=== PATIENT | male | born 1975 | race Caucasian/White ===

== ENCOUNTER → 2019-06-04 | Outpatient (CLI) | payer OTHER ==
[~2019-06-04] MED LIST: ACETAMINOPHEN-1 EAC1 PO; LOPERAMIDE 2 MG2 M1 PO; MULTIVITAMINS; ZOFRAN4 MG PO
== END ==
LOC: M.ULTRA 13:50
DX: N45.2 Orchitis (principal)

== ENCOUNTER 2020-04-09 19:10 | Emergency (ER) | payer OTHER ==
[~2020-04-09] VITALS: Ht 172.7 cm; Wt 90.7 kg
[2020-04-09 19:46] LABS: ABSOLUTE BASOPHILS 0.1 thou/uL (0.0-0.2); ABSOLUTE EOSINOPHILS 0.1 thou/uL (0.0-0.7); ABSOLUTE LYMPHOCYTES 1.5 thou/uL (0.8-5.3); ABSOLUTE MONOCYTES 0.7 thou/uL (0.0-1.2); ABSOLUTE NEUTROPHILS 6.8 thou/uL (1.6-8.1); EOSINOPHILS 0.6 %; HEMOGLOBIN 15.2 gm/dL (14.0-18.0); LYMPHOCYTES 16.1 %; MCH 29.8 pg (26.0-34.0); MCHC 33.8 g/dL (28.0-37.0); MCV 88.3 fL (80.0-100.0); MONOCYTES 7.6 %; MPV 7.9 fl. (7.2-11.1); NUCLEATED RBCS 0 /100WBC; PLATELET COUNT* 293 thou/uL (150-400); POLYS 74.7 %; RDW-CV 14.6 % (10.5-14.5); WBC 9.1 thou/uL (4.0-11.0)
[2020-04-09 19:46] LABS: URINE BILIRUBIN NEGATIVE (Negative); URINE BLOOD NEGATIVE (Negative); URINE CLARITY CLEAR; URINE COLOR YELLOW; URINE GLUCOSE-RANDOM NEGATIVE (Negative); URINE KETONES NEGATIVE (Negative); URINE LEUKOCYTES-REFLEX NEGATIVE (Negative); URINE NITRITE-REFLEX NEGATIVE (Negative); URINE PROTEIN NEGATIVE (Negative); URINE SPECIFIC GRAVITY 1.025 (1.005-1.030); URINE UROBILINOGEN 0.2 E.U./dl (0.2-1.0)
[2020-04-09 19:54] LABS: CALCIUM 8.6 mg/dL (8.5-10.1)
[2020-04-09 19:58] LABS: ALBUMIN 4.1 g/dL (3.4-5.0); TOTAL BILIRUBIN 0.6 mg/dL (<0.1-1.0); TOTAL PROTEIN 7.2 g/dL (6.4-8.2)
[2020-04-09] MEDS ORDERED: IBUPROFEN 800800 M1 PO (21:27)
[2020-04-09] MEDS ORDERED: NORCO 5-325 TA1 EAC2 PO (21:27)
[2020-04-09 21:38] VITALS: BP 115/65
--- NOTE | 2020-04-10 16:24 | EKG ---
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: [place] : 1975 Requested By: Betzy Carvalho Order Number: [id number] MD: Antonio Gomez Measurements Intervals [place] Rate: 83 P: 48 IN: 155 QRS: 12 QRSD: 74 T: 29 QT: 350 QTc: 412 Interpretive Statements Sinus rhythm Abnormal R-wave progression, early transition Baseline wander in lead(s) V3 No previous ECG available for comparison Electronically Signed On 04-10-2020 16:24:07 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
== END 2020-04-09 21:39 | disposition home or self-care (01) ==
LOC: M.ERS 19:10
PROVIDERS: Nurse Practitioner Family
DX: R10.11 Right upper quadrant pain (principal); Z98.890 Other specified postprocedural states